=== PATIENT | male | born 1975 | race Caucasian/White ===

== ENCOUNTER 2017-09-15 08:04 | Emergency (ER) | payer MEDICAID ==
[2017-09-15] MEDS: IV NORMAL SALINE 1000ML BAG 1,000 ML IV (08:41)
[2017-09-15 08:49] LABS: ADD MAN DIFF? NO
[2017-09-15 08:54] LABS: BASO # 0.1 x10^3/uL (0.0-0.2); BASO % 1 % (0-3); EOS # 0.2 x10^3/uL (0.0-0.7); EOS % 2 % (0-3); HEMOGLOBIN 15.6 g/dL (13.0-17.5); LYMPH # 1.8 x10^3/uL (1.0-4.8); LYMPH % 18 % (24-48); MEAN CORPUSCULAR HEMOGLOBIN 29 pg (25-35); MEAN CORPUSCULAR HGB CONC 34 g/dL (31-37); MEAN CORPUSCULAR VOLUME 86 fL (79-100); MONO # 0.4 x10^3/uL (0.0-1.1); MONO % 4 % (0-9); NEUT # 7.7 x10^3uL (1.8-7.7); NEUT % 76 % (31-73); PLATELET COUNT 308 x10^3/uL (140-400); RED BLOOD COUNT 5.35 x10^6/uL (4.30-5.70); RED CELL DISTRIBUTION WIDTH 13.9 % (11.5-14.5); WHITE BLOOD COUNT 10.2 x10^3/uL (4.0-11.0)
[2017-09-15 09:10] LABS: D-DIMER 0.29 ug/mlFEU (0.00-0.50)
[2017-09-15 09:11] LABS: ANION GAP 7 (6-14); BLOOD UREA NITROGEN 15 mg/dL (8-26); BUN/CREATININE RATIO 17 (6-20); CALCIUM 9.3 mg/dL (8.5-10.1); CARBON DIOXIDE 26 mmol/L (21-32); CHLORIDE 105 mmol/L (98-107); CREATININE 0.9 mg/dL (0.7-1.3); GFR 92.1; GLUCOSE 110 mg/dL (70-99); POTASSIUM 4.4 mmol/L (3.5-5.1); SODIUM 138 mmol/L (136-145)
[2017-09-15 09:16] LABS: ALBUMIN 3.8 g/dL (3.4-5.0); ALBUMIN/GLOBULIN RATIO 1.2 (1.0-1.7); ALK PHOS 95 U/L (46-116); ALT (SGPT) 22 U/L (16-63); AST (SGOT) 21 U/L (15-37); LIPASE 422 U/L (73-393); TOTAL BILIRUBIN 0.5 mg/dL (0.2-1.0)
[2017-09-15 09:19] LABS: TROPONINI < 0.017 ng/mL (0.000-0.055)
[2017-09-15 09:23] LABS: THYROID STIM HORMONE (TSH) 0.032 uIU/mL (0.358-3.74)
[2017-09-15 09:32] LABS: CKMB MASS < 0.5 ng/mL (0.0-3.6); CREATINE KINASE 79 U/L (39-308)
[2017-09-15 10:19] LABS: BILIRUBIN,URINE NEGATIVE (NEG); CLARITY,URINE CLOUDY; COLOR,URINE YELLOW; GLUCOSE,URINE NEGATIVE (NEG); NITRITE,URINE NEGATIVE (NEG); PH,URINE 6.5; PROTEIN,URINE NEGATIVE (NEG-TRACE); UROBILINOGEN,URINE 0.2 mg/dL (0.2 mg/dL)
[2017-09-15 10:28] LABS: SQUAMOUS EPITHELIAL CELL,UR OCC /LPF
[2017-09-15 10:29] LABS: AMORPHOUS SEDIMENT,UR PRESENT /HPF; BACTERIA,URINE FEW /HPF (0-FEW); RBC,URINE 0 /HPF (0-2); SPERM,URINE PRESENT /HPF
== END 2017-09-15 11:03 | disposition home or self-care (01) ==
LOC: ER 08:04
DX: R42 Dizziness and giddiness (principal); R94.6 Abnormal results of thyroid function studies; R07.89 Other chest pain; Z87.891 Personal history of nicotine dependence
CPT/HCPCS: 36415; 70450; 71045; 80053; 81001; 82553; 83690; 84443; 84484; 85025; 85379; 93005; 96360; 99285-25; J7030